=== PATIENT | female | born 1940 ===

== ENCOUNTER 2021-11-22 08:45 | Inpatient (IN) | payer OTHER ==
[~2021-11-22] VITALS: Ht 157.5 cm; Wt 70.3 kg
[2021-11-22] MEDS ORDERED: HUMULIN N100 UNIT/2 (09:50)
[2021-11-22] MEDS ORDERED: METFORMIN HCL500 M3 PO (09:50)
[2021-11-22] MEDS ORDERED: ALBUTEROL0.63 MG/3 IH (09:51)
[2021-11-22] MEDS ORDERED: PROAIR HFA8.5 GM IH (09:52)
[2021-11-26] MEDS ORDERED: PERCOCET 5-3251 EACH PO (08:19)
[2021-11-26] MEDS ORDERED: BACTRIM DS TAB1 EACH PO (08:19)
[2021-11-26] MEDS ORDERED: NEURONTIN800 MG PO (08:19)
[2021-11-26] MEDS ORDERED: MEDROLPACK PO (08:19)
[2021-11-26] MEDS ORDERED: COLACE100 MG PO (08:19)
== END 2021-11-28 15:42 | DRG 455 ==
LOC: O/R 11-26 05:30 → SURH 11-26 07:00 → PED 11-26 11:54
PROVIDERS: ADMIT Orthopaedic Surgery Orthopaedic Surgery of the Spine; ATTEND Orthopaedic Surgery Orthopaedic Surgery of the Spine
PROC: 0SG0071 Fusion of Lumbar Vertebral Joint with Autologous Tissue Substitute, Posterior Approach, Posterior Column, Open Approach (ICD-10-PCS; 2021-11-26)
PROC: 0ST20ZZ Resection of Lumbar Vertebral Disc, Open Approach (ICD-10-PCS; 2021-11-26)
PROC: 0QB30ZZ Excision of Left Pelvic Bone, Open Approach (ICD-10-PCS; 2021-11-26)
PROC: 07DR0ZZ Extraction of Iliac Bone Marrow, Open Approach (ICD-10-PCS; 2021-11-26)
PROC: 0SG00A0 Fusion of Lumbar Vertebral Joint with Interbody Fusion Device, Anterior Approach, Anterior Column, Open Approach (ICD-10-PCS; principal; 2021-11-26 07:00)
DX: M48.062 Spinal stenosis, lumbar region with neurogenic claudication (principal); M43.16 Spondylolisthesis, lumbar region; E11.9 Type 2 diabetes mellitus without complications; J45.909 Unspecified asthma, uncomplicated; M51.36 Other intervertebral disc degeneration, lumbar region; Z79.84 Long term (current) use of oral hypoglycemic drugs; Z79.4 Long term (current) use of insulin